=== PATIENT | male | born 1945 | race Hispanic/Latino ===

== ENCOUNTER 2016-08-22 12:22 | Outpatient (CLI) | payer MEDICARE ==
[2016-08-22 17:31] LABS: ALT (SGPT) 13 U/L (0-55); AST (SGOT) 16 U/L (5-34); Alkaline Phosphatase 78 U/L (40-150); Anion Gap 16 mmol/L (10-20); BUN (Urea Nitrogen) 17 mg/dL (8.4-25.7); Bilirubin, Total 0.3 mg/dL (0.2-1.2); Calc. Creatinine Clearance 0 mL/min (70-130); Calcium 9.6 mg/dL (7.8-10.44); Carbon Dioxide 23 mmol/L (23-31); Chloride 105 mmol/L (98-107); Estimated GFR-MDRD 75; Globulin 3.4 g/dL (2.4-3.5); LDL Cholesterol, Calculated 67 mg/dL; Protein, Total 7.8 g/dL (5.8-8.1)
[2016-08-22 21:47] LABS: Hematocrit 43.5 % (42.0-52.0); Mean Platelet Volume 6.8 fL (7.4-10.4); Neutrophil 65 % (42-75); Red Blood Cell (RBC) Count 4.55 mill/uL (4.70-6.10); White Blood Cell (WBC) Count 8.3 thou/uL (4.8-10.8)
== END 2016-08-22 12:23 | disposition home or self-care (01) ==
LOC: LABLEX 12:22
PROVIDERS: ATTEND Family Medicine
DX: I10 Essential (primary) hypertension (principal); D64.9 Anemia, unspecified; N40.1 Benign prostatic hyperplasia with lower urinary tract symptoms; R79.89 Other specified abnormal findings of blood chemistry; Z86.73 Personal history of transient ischemic attack (TIA), and cerebral infarction without residual deficits
CPT/HCPCS: 80053; 80061; 84153; 84443; 85025